=== PATIENT | female | born 1965 | race Caucasian/White ===

== ENCOUNTER 2017-04-14 09:16 | Inpatient (IN) ==
[2017-04-14] MEDS ORDERED: Naloxone 0.4 MG/ML INJ IVP PRN (11:55)
[2017-04-14] MEDS ORDERED: Ondansetron 4 MG/2 ML VIAL IVP PRN (11:55)
[2017-04-14] MEDS ORDERED: Acetaminophen 325 MG TABLET PO PRN (11:55)
[2017-04-14] MEDS ORDERED: 0.9 % Sodium Chloride 1,000 ML IVC SCH (12:00)
[2017-04-14] MEDS ORDERED: *HR* Dextrose 50 % in Water (Syg) 50 ML SYRINGE IVP PRN (12:00)
[2017-04-14] MEDS ORDERED: Dextrose Gel 15 GM PO PRN (12:00)
[2017-04-14] MEDS ORDERED: D5% in Water 1,000 ML IVC PRN (12:00)
[2017-04-14] MEDS ORDERED: Albuterol 2.5 MG/3 ML NEBULIZER IH PRN (12:01)
[2017-04-14] MEDS ORDERED: Dextrose Gel 15 GM PO ONE (12:09)
--- NOTE | 2017-04-14 12:10 | Internal Med History&Physical ---
Date of Encounter: 04/14/17 Time of Encounter: 11:30 Assessment and Plan (1) Acute renal failure Current visit: No Status: Acute Multifactorial Related to acute gastrointestinal illness (likely acute gastroenteritis, viral ) as well as dehydration and concom use of NSAIDs, JULIETA. Check CK as well as she is on statin Neohrology c/s Renal US if not improving Qualifiers: Qualified Code(s): N17.9 - Acute kidney failure, unspecified (2) Hyperkalemia Current visit: Yes Status: Acute No EKG changes. Has recieved IVF. Repeat BMP ordered. JULIETA held. Cotninue IVF , monitor (3) Schizophrenia Current visit: Yes Status: Acute continue home meds Qualifiers: Schizophrenia type: paranoid schizophrenia Qualified Code(s): F20.0 - Paranoid schizophrenia (4) COPD (chronic obstructive pulmonary disease) Current visit: Yes Status: Acute Stabe, continue bronchodilators Qualifiers: COPD type: emphysema Emphysema type: unspecified Qualified Code(s): J43.9 - Emphysema, unspecified (5) Hyperlipidemia Current visit: Yes Status: Acute check CK, hold statin for now Qualifiers: Hyperlipidemia type: pure hypercholesterolemia Qualified Code(s): E78.00 - Pure hypercholesterolemia, unspecified; E78.0 - Pure hypercholesterolemia (6) HTN (hypertension) Current visit: Yes Status: Acute Qualifiers: Hypertension type: essential hypertension Qualified Code(s): I10 - Essential (primary) hypertension (7) Tobacco abuse Current visit: Yes Status: Acute counselling Internal Medicine - H&P: HPI Admitted From: Direct Admit Plans for Post Hospital Care: Home History of present illness: 51 yo female with PMH schizophrenia living in Foster care, NIDDM on oral meds, HTN, Hyperlipidemia, COPD with ongoing tobacco abuse. Presents as a direct admit from [place] for STEPHEN with a Cr of 5.8, K of 7.5. No EKG chages. She was given kayexalate and 2 L IVF and referred here. PT reports 3-4 days hx N/V, no diarrhea. No abd pain. No fevers or chills. No cough or SOB. No revent travel. No new meds. No ill contacts or recent travel. States very poor po's. She is on Metformin, JULIETA I and also Naprosyn at home, as well as a statin. Pt now states she feels much better, and per her caregiver is more back to herself. By report at the [facility] this am she was agitated with clenched hands. Pt has no hx kidney disease. Pt is a a fair historian. Past Med Surg Social Fam HX - Past Medical History Medical history: COPD, diabetes, hypertension Psychiatric history: schizophrenia - Past Surgical History Surgical History: no surgical history - Social History Smoking Status: Current every day smoker Packs per day: 1 Smokeless Tobacco Status: No Alcohol use: none Drug use: none Recent Out of Country Travel Within the Last 8 Weeks: No Exposure or Possible Exposure to Illness During Travel: No - Family History Mother History Unknown: Yes Father History Unknown: Yes - Additional Family History Additional family history: Fam hx reviewed and noncontributory Internal Medicine - H&P: Meds Benztropine [Cogentin] 0.5 mg PO BID 08/27/15 [History] DiphenhydraMINE [Benadryl] 50 mg PO HS 08/27/15 [History] Haloperidol [Haldol] 5 mg PO QAM 08/27/15 [History] Lisinopril [Zestril] 10 mg PO DAILY 08/27/15 [History] Metformin HCl [Fortamet] 1,000 mg PO BID 08/27/15 [History] Naproxen [Naprosyn] 500 mg PO BID 08/27/15 [History] Pravastatin Sodium [Pravachol] 20 mg PO HS 08/27/15 [History] Venlafaxine HCl [Venlafaxine HCl ER] 150 mg PO DAILY 08/27/15 [History] glipiZIDE [Glipizide] 10 mg PO BID 08/27/15 [History] risperiDONE [Risperdal] 4 mg PO BID 08/27/15 [History] Albuterol Neb [Proventil Neb] 2.5 mg IH Q4HR PRN 04/14/17 [History] RisperiDONE MICROSPHERES [Risperdal Consta] 50 mg IM Q2W 04/14/17 [History] 3 Allergy/AdvReac Type Severity Reaction Status Date / Time No Known Allergies Allergy Verified 08/27/15 16:11 All Systems PM: A 10-system review of systems was performed and is negative for pertinent findings except as documented above in the HPI. Review of systems: Other than HPI a 10 pt ROS is negative - Constitutional Vitals: Temp Pulse Resp BP Pulse Ox 97.2 F L 117 16 137/84 97 04/14/17 11:52 04/14/17 11:52 04/14/17 11:52 04/14/17 11:52 04/14/17 11:52 General appearance: Present: A&O X 3, no acute distress, answers questions appropriately - Expanded ENT Exam Mouth exam: Present: dry mucosa - Respiratory Respiratory exam: Present: rhonchi (diffuse coarse bs bilat, scant exp wheeze) - Skin Skin exam: Present: dry (dimin turgor) Internal Med - H&P Results - EKG Data EKG shows normal: sinus rhythm Rate: normal, tachycardia - EKG Data Prior EKG available for review: no When compared to previous EKG: there is no significant change Interpretation IM: normal EKG - VTE Reasons for not Prescribing Prophylaxis: Treatment not Indicated - Low risk for VTE
[2017-04-14] MEDS: Dextrose Gel 15 GM PO PRN ×2 (12:16→21:25)
[2017-04-14] MEDS: Insulin LISPRO 300 UNITS/3 ML VIAL SQ SCH ×2 (12:18→17:32)
[2017-04-14 12:44] LABS: Basophils % 0.2 %; Eosinophils % 0.2 %; Hematocrit 41.2 % (35.3-44.9); Hemoglobin 13.4 g/dL (11.5-15.4); Immature Granulocytes % 0.7 % (0-4); Lymphocytes # 1.6 K/mcL (0.6-4.6); Lymphocytes % 15.6 %; Mean Corpuscular HGB Conc 32.5 g/dL (31.6-35.5); Mean Corpuscular Hemoglobin 29.6 pg (28.0-33.3); Mean Corpuscular Volume 90.9 fL (83.0-100.0); Mean Platelet Volume 10.3 fL (9.4-12.4); Monocytes # 0.7 K/mcL (0.0-1.3); Monocytes % 6.9 %; Platelet Count 301 K/mcL (140-400); Red Blood Count 4.53 M/mcL (3.82-4.97); Red Cell Distribution Width 13.8 % (11.5-14.5); Segmented Neutrophils % 76.4 %
[2017-04-14 12:54] LABS: Magnesium 1.7 mg/dL (1.6-2.6); Phosphorous 4.8 mg/dL (2.3-4.7)
[2017-04-14 12:55] LABS: Calcium 9.5 mg/dL (8.6-10.8); Potassium 5.8 mEq/L (3.5-4.5)
[2017-04-14 13:16] LABS: Thyroid Stimulating Hormone 0.924 mcIU/mL (0.350-4.840)
[2017-04-14 13:27] LABS: Hemoglobin A1C 5.5 %
--- NOTE | 2017-04-14 13:39 | Nephrology Consult Note ---
Date of Encounter: 04/14/17 Time of Encounter: 13:35 Assessment and Plan (1) Acute kidney injury Current Visit: Yes Status: Acute Review of past labs show a GFR of 45 on 07/11/16 and 59 on 06/11/16. Unknown at this time if any underlying CKD Will proceed with both the STEPHEN and CKD workup to include: UA, urine culture, urine sodium, urine creatinine, urine eosinophils, CPK, renal ultrasound, uric acid, protein/creatinine ratio, PTH, C3 C4 compliment, Vit D25-OH, MESERET, kappa lambda. Agree with holding JULIETA Agree with aggressive IV fluids Strict I/Os Avoid nephrotoxins if possible (2) Hyperkalemia Current Visit: Yes Status: Acute K+ now down to 5.8 after Kayexulate Monitor closely (3) Schizophrenia Current Visit: Yes Status: Acute per primary team Qualifiers: Schizophrenia type: paranoid schizophrenia Qualified Code(s): F20.0 - Paranoid schizophrenia History of Present Illness - Reason for Consult Consult date: 04/14/17 - Chief Complaint STEPHEN, hyperkalemia - History of Present Illness Ms Mann is a 51 year old female with PMH of schizophrenia living in Foster care , NIDDM on oral meds, HTN, Hyperlipidemia, COPD with ongoing tobacco abuse. Presents as a direct admit from [place] for STEPHEN with a Scr of 5.8 and a K+ of 7.5. She was given kayexalate and 2 L IVF and referred here. PT reports 3-4 days hx N/V, no diarrhea. States very poor intake. She is on Metformin, JULIETA and also Naprosyn at home although she says she only uses NSAIDs occasionally. Pt now states she feels much better; states she has has no hx of kidney disease nor any kidney disease in her family. Past Med Surg Social Fam HX - Past Medical History Medical history: COPD, diabetes, hypertension Psychiatric history: schizophrenia - Past Surgical History Surgical History: no surgical history - Social History Smoking Status: Current every day smoker Packs per day: 1 Smokeless Tobacco Status: No Alcohol use: none Drug use: none - Family History Mother History Unknown: Yes Father History Unknown: Yes Medications and Allergies Benztropine [Cogentin] 0.5 mg PO BID 08/27/15 [History] DiphenhydraMINE [Benadryl] 50 mg PO HS 08/27/15 [History] Haloperidol [Haldol] 5 mg PO QAM 08/27/15 [History] Lisinopril [Zestril] 10 mg PO DAILY 08/27/15 [History] Metformin HCl [Fortamet] 1,000 mg PO BID 08/27/15 [History] Naproxen [Naprosyn] 500 mg PO BID 08/27/15 [History] Pravastatin Sodium [Pravachol] 20 mg PO HS 08/27/15 [History] Venlafaxine HCl [Venlafaxine HCl ER] 150 mg PO DAILY 08/27/15 [History] glipiZIDE [Glipizide] 10 mg PO BID 08/27/15 [History] risperiDONE [Risperdal] 4 mg PO BID 08/27/15 [History] Albuterol Neb [Proventil Neb] 2.5 mg IH Q4HR PRN 04/14/17 [History] RisperiDONE MICROSPHERES [Risperdal Consta] 50 mg IM Q2W 04/14/17 [History] 3 Allergy/AdvReac Type Severity Reaction Status Date / Time No Known Allergies Allergy Verified 08/27/15 16:11 Review of Systems All Systems: reviewed and no additional remarkable complaints except as stated Constitutional: malaise, no chills, no fever(s) Cardiovascular: no chest pain, no edema Respiratory: no cough, no dyspnea Gastrointestinal: nausea, vomiting, no diarrhea Psychiatric: behavioral changes Exam - Vital Signs Vital signs: Initial Vital Signs Temp Pulse Resp BP Pulse Ox 97.2 F L 117 16 137/84 97 04/14/17 11:52 04/14/17 11:52 04/14/17 11:52 04/14/17 11:52 04/14/17 11:52 Vital Signs - Last 8 Hours Temp Pulse Resp BP Pulse Ox 04/14/17 13:16 98.2 F 115 16 118/79 96 04/14/17 11:52 97.2 F L 117 16 137/84 97 Intake and Output 04/13/17 04/14/17 04/14/17 23:59 07:59 15:59 Intake Total 480 / 480 Balance 480 / 480 Intake: Oral 480 / 480 Other: Meal Lunch Percent of Meal Consumed 5% Blood Glucose* 73 - General Appearance General appearance: well-developed, well-nourished, obese EENT: ATNC, mucous membranes moist, hearing intact, vision intact Neck: supple Respiratory: clear Cardiology: no edema, normal S1, normal S2 Gastrointestinal: no tenderness, no guarding Integumentary: warm and dry Neurologic: alert and oriented x3 Psychiatric: mood/affect appropriate, cooperative Results - Lab Results 04/14/17 12:31 04/14/17 12:31 Most recent lab results Calcium 9.5 mg/dL (8.6-10.8) 04/14/17 12:31 Phosphorus 4.8 mg/dL (2.3-4.7) H 04/14/17 12:31 Magnesium 1.7 mg/dL (1.6-2.6) 04/14/17 12:31 Consult Discharge Plan - Plan Referrals: Marla Miramontes DO [Primary Care Provider] -
[2017-04-14] MEDS: D5% in 0.9% NACL 1,000 ML IVC SCH ×2 (15:53→23:29)
[2017-04-14] MEDS: Ipratropium/Albuterol Neb 3 ML IH SCH ×2 (20:05→22:29)
[2017-04-14] MEDS: risperiDONE 1 MG TABLET PO SCH (20:43)
[2017-04-14 22:35] LABS: Bilirubin,Urine Negative (Negative); Blood,Urine Trace (Negative); Clarity,Urine Clear (Clear); Color,Urine Yellow (Yellow); Glucose,Urine (UA) Normal (Normal); Ketones,Urine Negative (Negative); Leukocyte Esterase,Urine Negative (Negative); Nitrite,Urine Negative (Negative); Protein,Urine 30 mg/dL (Neg-Trace); Specific Gravity,Urine 1.011 (1.010-1.025); Urobilinogen,Urine Normal (Normal)
[2017-04-14 22:37] LABS: Bacteria,Urine None Seen per hpf (None-Few); Hyaline Casts,Urine None Seen per lpf (None-Few); Squamous Epithelial Cell,Urine Many per lpf (None-Few)
[2017-04-14 22:40] LABS: Protein/Creatinine Ratio,Urine 0.52 mg/mg (0-0.20)
[2017-04-15] MEDS: Insulin LISPRO 300 UNITS/3 ML VIAL SQ SCH ×4 (01:39→17:01)
[2017-04-15] MEDS: Ipratropium/Albuterol Neb 3 ML IH SCH ×4 (04:08→22:50)
[2017-04-15 05:13] LABS: Basophils # 0.1 K/mcL (0.0-0.2); Basophils % 0.5 %; Eosinophils # 0.1 K/mcL (0.0-0.6); Eosinophils % 1.1 %; Hematocrit 36.5 % (35.3-44.9); Immature Granulocytes % 0.6 % (0-4); Lymphocytes # 2.4 K/mcL (0.6-4.6); Lymphocytes % 25.5 %; Mean Corpuscular HGB Conc 32.1 g/dL (31.6-35.5); Mean Corpuscular Hemoglobin 29.4 pg (28.0-33.3); Mean Corpuscular Volume 91.7 fL (83.0-100.0); Mean Platelet Volume 10.6 fL (9.4-12.4); Monocytes # 0.9 K/mcL (0.0-1.3); Monocytes % 9.9 %; Neutrophils # 5.9 K/mcL (1.6-8.9); Platelet Count 245 K/mcL (140-400); Red Blood Count 3.98 M/mcL (3.82-4.97); Segmented Neutrophils % 62.4 %
[2017-04-15 05:17] LABS: Hemoglobin 11.7 g/dL (11.5-15.4)
[2017-04-15 05:18] LABS: Potassium 5.1 mEq/L (3.5-4.5); Uric Acid 7.5 mg/dL (2.6-6.0)
[2017-04-15 05:20] LABS: Calcium 7.9 mg/dL (8.6-10.8)
[2017-04-15] MEDS: D5% in 0.9% NACL 1,000 ML IVC SCH ×4 (05:56→23:06)
[2017-04-15] MEDS: Venlafaxine XR (24 HR) 150 MG CAP.ER.24H PO SCH (08:08)
[2017-04-15] MEDS: risperiDONE 1 MG TABLET PO SCH ×2 (08:09→21:01)
--- NOTE | 2017-04-15 10:59 | Nephrology Progress Note ---
Date of Encounter: 04/15/17 Time of Encounter: 09:35 - Assessment and Plan (1) Acute kidney injury Current Visit: Yes Status: Acute Mildly improved and nonoliguric. Though I do not rec HD today, she still may need initiation of HD if she does not improve more fully in the next 24-48hr Wheezing on exam, without finger, hand or LE pitting edema: cont IVF. Hyperkalemia is slowly improve to just 5.1 today. (2) HTN (hypertension) Current Visit: Yes Status: Acute Stable Qualifiers: Hypertension type: essential hypertension Qualified Code(s): I10 - Essential (primary) hypertension (3) Hyperkalemia Current Visit: Yes Status: Acute slowly improving Subjective Principal diagnosis: STEPHEN, Hyperkalemia Interval history: Pt was s/e. She denied feeling a diminished appetite, or N/V or other uremic symptoms. Objective - Vital Signs Vital signs: Vital Signs Temp Pulse Resp BP Pulse Ox 04/15/17 10:47 98.0 F 99 17 143/87 96 04/15/17 07:38 98.2 F 97 17 138/82 98 04/15/17 04:09 98.3 F 102 16 146/84 96 04/15/17 00:06 97 04/14/17 23:22 98.1 F 103 16 133/90 96 04/14/17 22:30 99 04/14/17 18:55 98.1 F 93 17 146/85 90 04/14/17 15:20 98.7 F 115 16 131/74 93 04/14/17 13:16 98.2 F 115 16 118/79 96 04/14/17 11:52 97.2 F L 117 16 137/84 97 Intake and Output 04/14/17 04/15/17 04/15/17 23:59 07:59 15:59 Intake Total 1150 / 1150 1000 / 1000 360 / 360 Output Total 650 / 650 1999 0 / 0 Balance 500 / 500 -1000 / -1000 360 / 360 Intake: IV Fluids 1000 / 1000 1000 / 1000 D5% And 0.9% Nacl 1000 Ml 1000 / 1000 1000 / 1000 1,000 ML @ 150 mls/hr IVC .Q6H40M [facility] Rx#: [id number] Oral 150 / 150 360 / 360 Output: Urine 650 / 650 1999 0 / 0 Other: Meal Dinner Breakfast Percent of Meal Consumed 100% 45% Stool Size Moderate Stool Consistency loose liquid Stool Color Brown # Voids 1 # Bowel Movements 1 Weight 68.9 kg 68.8 kg Blood Glucose* 109 105 202 Patient Weight 04/15/17 23:59 Weight 68.8 kg - General Appearance General appearance: Present: well-developed, well-nourished, appears started age EENT: Present: ATNC, PERRL, mucous membranes moist Neck: Present: supple Respiratory: Present: wheezing Cardiology: Present: no edema, regular rate, normal S1, normal S2 Gastrointestinal: Present: normoactive bowel sounds, no tenderness, no guarding Integumentary: Present: warm and dry Neurologic: Present: no focal deficit, no asterixis, alert and oriented x3 Musculoskeletal: Present: no deformities, no erythema Psychiatric: Present: mood/affect appropriate, cooperative - Lab 04/15/17 04:39 04/15/17 04:39 Most recent lab results Calcium 7.9 mg/dL (8.6-10.8) L D 04/15/17 04:39 Phosphorus 4.8 mg/dL (2.3-4.7) H 04/14/17 12:31 Magnesium 1.7 mg/dL (1.6-2.6) 04/14/17 12:31 Urine Creatinine 29 mg/dL 04/14/17 22:20 Urine Sodium 73.0 mEq/L 04/14/17 22:20 Urine Total Protein 15 mg/dL (1-14) H 04/14/17 22:20 - VTE Reasons for not Prescribing Prophylaxis: Treatment not Indicated - Low risk for VTE Documentation of Mechanical Device: Graduated compression elastic hosiery Consult Discharge Plan - Plan Referrals: Marla Miramontes DO [Primary Care Provider] -
--- NOTE | 2017-04-15 17:39 | Internal Med Progress Note ---
Date of Encounter: 04/15/17 Time of Encounter: 17:37 - Assessment and plan (1) Acute renal failure Current Visit: No Status: Acute Assessment and plan: IV fluids. Appreciate nephrology recommendations. Monitor kidney function daily. Avoid nephrotoxins. May need hemodialysis if creatinine does not significantly improve. Her medical record review baseline in June 2016 was 0.99. Qualifiers: Qualified Code(s): N17.9 - Acute kidney failure, unspecified (2) Hyperkalemia Current Visit: Yes Status: Acute Assessment and plan: Potassium remains elevated at 5.1 today. I will give 1 dose of Kayexalate and start renal diet. (3) Schizophrenia Current Visit: Yes Status: Acute Assessment and plan: I will continue her psych meds. Qualifiers: Schizophrenia type: paranoid schizophrenia Qualified Code(s): F20.0 - Paranoid schizophrenia (4) COPD (chronic obstructive pulmonary disease) Current Visit: Yes Status: Acute Assessment and plan: No evidence of exacerbation. We will use bronchodilators as needed. Qualifiers: COPD type: emphysema Emphysema type: unspecified Qualified Code(s): J43.9 - Emphysema, unspecified (5) Tobacco abuse Current Visit: Yes Status: Acute Assessment and plan: I have discussed smoking cessation with her. I offered nicotine replacement therapy. - Subjective Interval history: History is limited by schizophrenia. Patient appears quite withdrawn and does not volunteer any information. She says she does not know why she is in the hospital. She denies changes in urination denies abdominal pain, fevers and chills - Constitutional Vitals: Temp Pulse Resp BP Pulse Ox 98.2 F 98 17 131/85 95 04/15/17 16:45 04/15/17 16:45 04/15/17 16:45 04/15/17 16:45 04/15/17 16:45 General appearance: Present: A&O X 3, no acute distress, answers questions appropriately - Respiratory Respiratory exam: Present: CTAB. Absent: accessory muscle use, rales, rhonchi, wheezes - Cardiovascular Cardiovascular exam: Present: RRR, +S1, +S2. Absent: diastolic murmur, gallop, rubs, systolic murmur - GI/Abdominal GI/Abdominal exam: Present: normal bowel sounds, soft, no peritoneal signs. Absent: distended, tenderness - Extremities Exam Extremities exam: Present: warm, radial pulses palpable and symmetrical. Absent : calf tenderness, cyanotic, pedal edema - Skin Skin exam: Present: dry, intact Internal Medicine: Result - Labs CBC & Chem 7: 04/15/17 04:39 04/15/17 04:39 Labs: Short CBC 04/15/17 Range/Units 04:39 WBC 9.4 (4.3-11.1) K/mcL Hgb 11.7 D (11.5-15.4) g/dL Hct 36.5 (35.3-44.9) % Plt Count 245 (140-400) K/mcL Neutrophils # 5.9 (1.6-8.9) K/mcL BMP 04/15/17 04:39 Sodium 138 Potassium 5.1 H Chloride 106 Carbon Dioxide 21 BUN 28 H Creatinine 4.93 H Glucose 83 Calcium 7.9 L D Urine 04/14/17 Range/Units 22:20 Urine Color Yellow (Yellow) Urine Clarity Clear (Clear) Urine pH 7.0 (5.0-8.0) pH Units Ur Specific [place] 1.011 (1.010-1.025) Urine Protein 30 H (Neg-Trace) mg/dL Urine Glucose (UA) Normal (Normal) mg/dL - Impressions Impressions Chest X-Ray 04/14/17 12:03 IMPRESSION: No acute disease. D/ / Olive Antonio Cha, MD / Olive Antonio Cha, MD Interpreting Provider: Olive Antonio Cha, MD Retroperitoneum Ultrasound 04/14/17 18:00 IMPRESSION: Mild right pelviectasis. Correlation for obstructive uropathy is recommended. Suspected fatty infiltration of the liver D/ / Olive Antonio Cha, MD / Olive Antonio Cha, MD Interpreting Provider: Olive Antonio Cha, MD - VTE Reasons for not Prescribing Prophylaxis: Treatment not Indicated - Low risk for VTE Documentation of Mechanical Device: Graduated compression elastic hosiery Consult Discharge Plan - Plan Referrals: Marla Miramontes DO [Primary Care Provider] -
[2017-04-15] MEDS ORDERED: Insulin LISPRO 300 UNITS/3 ML VIAL SQ SCH (21:00)
[2017-04-16] MEDS: Ipratropium/Albuterol Neb 3 ML IH SCH ×4 (04:39→22:54)
[2017-04-16 04:52] LABS: Basophils # 0.1 K/mcL (0.0-0.2); Basophils % 0.9 %; Eosinophils # 0.2 K/mcL (0.0-0.6); Eosinophils % 3.3 %; Hematocrit 33.7 % (35.3-44.9); Hemoglobin 10.8 g/dL (11.5-15.4); Immature Granulocytes % 0.4 % (0-4); Immature Platelets 3.3 % (1.1-6.1); Lymphocytes # 2.2 K/mcL (0.6-4.6); Lymphocytes % 30.9 %; Mean Corpuscular Hemoglobin 29.8 pg (28.0-33.3); Mean Corpuscular Volume 92.8 fL (83.0-100.0); Mean Platelet Volume 10.4 fL (9.4-12.4); Monocytes # 0.8 K/mcL (0.0-1.3); Monocytes % 11.3 %; Neutrophils # 3.7 K/mcL (1.6-8.9); Platelet Count 226 K/mcL (140-400); Red Blood Count 3.63 M/mcL (3.82-4.97); Red Cell Distribution Width 13.8 % (11.5-14.5); Segmented Neutrophils % 53.2 %
[2017-04-16] MEDS: D5% in 0.9% NACL 1,000 ML IVC SCH (05:51)
[2017-04-16 06:16] LABS: Calcium 7.4 mg/dL (8.6-10.8); Potassium 4.9 mEq/L (3.5-4.5)
[2017-04-16 07:47] LABS: Complement Component 3 133 mg/dL (88-201)
[2017-04-16 07:48] LABS: Complement Component 4 24 mg/dL (10-40)
[2017-04-16 07:52] LABS: ANA IgG by ELISA NONE DETECTED (None Detected)
--- NOTE | 2017-04-16 08:28 | Nephrology Progress Note ---
Date of Encounter: 04/16/17 Time of Encounter: 08:18 - Assessment and Plan (1) Acute kidney injury Current Visit: Yes Status: Acute Kidney function continues to improve Scr 3.24 and GFR 15 Chloride up to 112-will change IV fluids to .45 at 100ml/hour Robust UOP-3750 ml yesterday Continue strict I/Os Avoid nephrotoxins if possible (2) Hyperkalemia Current Visit: Yes Status: Acute Improving-now at 4.9 (3) Schizophrenia Current Visit: Yes Status: Acute per primary team Qualifiers: Schizophrenia type: paranoid schizophrenia Qualified Code(s): F20.0 - Paranoid schizophrenia Subjective Principal diagnosis: STEPHEN, Hyperkalemia Interval history: Patient seen and examined. Siting on side of bed, voices no complaints. Objective - Vital Signs Vital signs: Vital Signs Temp Pulse Resp BP Pulse Ox 04/16/17 07:21 97.9 F 96 16 151/93 97 04/16/17 04:18 98.3 F 98 16 136/82 94 04/15/17 23:43 98.2 F 98 16 117/75 96 04/15/17 22:50 16 96 04/15/17 19:17 98.4 F 95 16 146/82 96 04/15/17 16:45 98.2 F 98 17 131/85 95 04/15/17 15:49 17 96 04/15/17 11:00 17 96 04/15/17 10:47 98.0 F 99 17 143/87 96 Intake and Output 04/15/17 04/16/17 04/16/17 23:59 07:59 15:59 Intake Total 2510 / 2510 1000 / 1000 Output Total 850 / 850 1000 / 1000 Balance 1660 / 1660 0 / 0 Intake: IV Fluids 1999 1000 / 1000 D5% And 0.9% Nacl 1000 Ml 1999 / 1999 1000 / 1000 1,000 ML @ 150 mls/hr IVC .Q6H40M [facility] Rx#: [id number] Oral 510 / 510 Output: Urine 850 / 850 1000 / 1000 Other: Meal Dinner Percent of Meal Consumed 50% Weight 68.1 kg Blood Glucose* 248 150 Patient Weight 04/16/17 23:59 Weight 68.1 kg - General Appearance General appearance: Present: well-developed, well-nourished EENT: Present: ATNC, mucous membranes moist, hearing intact, vision intact Neck: Present: supple Respiratory: Present: clear Cardiology: Present: no edema, normal S1, normal S2 Gastrointestinal: Present: no tenderness, no guarding Integumentary: Present: warm and dry Neurologic: Present: alert and oriented x3 Psychiatric: Present: mood/affect appropriate, cooperative - Lab 04/16/17 03:54 04/16/17 03:54 Most recent lab results Calcium 7.4 mg/dL (8.6-10.8) L 04/16/17 03:54 Phosphorus 4.8 mg/dL (2.3-4.7) H 04/14/17 12:31 Magnesium 1.7 mg/dL (1.6-2.6) 04/14/17 12:31 Urine Creatinine 29 mg/dL 04/14/17 22:20 Urine Sodium 73.0 mEq/L 04/14/17 22:20 Urine Total Protein 15 mg/dL (1-14) H 04/14/17 22:20 - VTE Reasons for not Prescribing Prophylaxis: Treatment not Indicated - Low risk for VTE Documentation of Mechanical Device: Graduated compression elastic hosiery Consult Discharge Plan - Plan Referrals: Marla Miramontes DO [Primary Care Provider] -
--- NOTE | 2017-04-16 08:32 | Internal Med Progress Note ---
Date of Encounter: 04/16/17 Time of Encounter: 08:30 - Assessment and plan (1) Acute renal failure Current Visit: No Status: Acute Assessment and plan: Non oliguria So far very good urine out put Cr started trending down slowly Cont IV hydration Changed IVF to 1/2 NS .. due to Na @ 140 strict I & O Nephro on board may not need HD Her medical record review baseline in June 2016 was 0.99. Qualifiers: Qualified Code(s): N17.9 - Acute kidney failure, unspecified (2) Hypoglycemia Current Visit: No Status: Acute Assessment and plan: resolved d/c D5 IVF tolerating PO intake well (3) Hyperkalemia Current Visit: Yes Status: Acute Assessment and plan: Improving slowly..down to 4.9 cont close monitoring cont albuterol Neb (4) Schizophrenia Current Visit: Yes Status: Acute Assessment and plan: resumed home med Haldol and Cogentin Qualifiers: Schizophrenia type: paranoid schizophrenia Qualified Code(s): F20.0 - Paranoid schizophrenia (5) COPD (chronic obstructive pulmonary disease) Current Visit: Yes Status: Acute Assessment and plan: No evidence of exacerbation. Cont bronchodilators as needed. Qualifiers: COPD type: emphysema Emphysema type: unspecified Qualified Code(s): J43.9 - Emphysema, unspecified (6) HTN (hypertension) Current Visit: Yes Status: Acute Qualifiers: Hypertension type: essential hypertension Qualified Code(s): I10 - Essential (primary) hypertension (7) Tobacco abuse Current Visit: Yes Status: Acute Assessment and plan: Counseled to quit smoking. on Nicotine patch (8) Diabetes mellitus Current Visit: Yes Status: Chronic Assessment and plan: Her HbA1C 5.5 with Metformin on at home Hold Metformin for now cont low grade ISS for now Qualifiers: Diabetes mellitus type: type 2 Diabetes mellitus complication status: without complication Qualified Code(s): E11.9 - Type 2 diabetes mellitus without complications - Subjective Interval history: 51 yo female with PMH schizophrenia living in Foster care, NIDDM on oral meds, HTN, Hyperlipidemia, COPD with ongoing tobacco abuse. Presents as a direct admit from [place] for STEPHEN with a Cr of 5.8, K of 7.5. No EKG chages. She was given kayexalate and 2 L IVF and referred here. PT reports 3-4 days hx N/V, no diarrhea. No abd pain. No fevers or chills. No cough or SOB. No recent travel. No new meds. No ill contacts or recent travel. States very poor po's. She is on Metformin, JULIETA I and also Naprosyn at home, as well as a statin. Pt is alert, awake and O x3.. Tolerating pO intake well. Denied any CP / SOB / Abd pain .. No diarrhea. No urinary complaints / symptoms - Constitutional Vitals: Temp Pulse Resp BP Pulse Ox 97.9 F 96 16 151/93 97 04/16/17 07:21 04/16/17 07:21 04/16/17 07:21 04/16/17 07:21 04/16/17 07:21 General appearance: Present: A&O X 3, no acute distress, answers questions appropriately - Head Head exam: Present: atraumatic, normal inspection - Respiratory Respiratory exam: Present: decreased breath sounds. Absent: rales, rhonchi, wheezes - Cardiovascular Cardiovascular exam: Present: RRR, +S1, +S2. Absent: diastolic murmur, gallop, rubs, systolic murmur - GI/Abdominal GI/Abdominal exam: Present: normal bowel sounds, soft, no peritoneal signs. Absent: distended, tenderness - Extremities Exam Extremities exam: Absent: calf tenderness, pedal edema, tenderness - Back Exam Back exam: Absent: CVA tenderness (L), CVA tenderness (R) - Neurological Exam Neurological exam: Present: alert, oriented X3 - Psychiatric Psychiatric exam: Present: normal affect, normal mood Internal Medicine: Result - Labs CBC & Chem 7: 04/16/17 03:54 04/16/17 03:54 Labs: Short CBC 04/16/17 Range/Units 03:54 WBC 7.0 (4.3-11.1) K/mcL Hgb 10.8 L (11.5-15.4) g/dL Hct 33.7 L (35.3-44.9) % Plt Count 226 (140-400) K/mcL Neutrophils # 3.7 (1.6-8.9) K/mcL BMP 04/16/17 03:54 Sodium 140 Potassium 4.9 H Chloride 112 H Carbon Dioxide 20 BUN 22 H Creatinine 3.24 H Glucose 135 H Calcium 7.4 L - VTE Reasons for not Prescribing Prophylaxis: Treatment not Indicated - Low risk for VTE Documentation of Mechanical Device: Graduated compression elastic hosiery Consult Discharge Plan - Plan Referrals: Marla Miramontes DO [Primary Care Provider] -
[2017-04-16] MEDS: Venlafaxine XR (24 HR) 150 MG CAP.ER.24H PO SCH (08:36)
[2017-04-16] MEDS: risperiDONE 1 MG TABLET PO SCH ×2 (08:37→22:09)
[2017-04-16 09:38] LABS: Lambda Qnt Free Light Chains 2.86 mg/dL (0.57-2.63)
[2017-04-16] MEDS: Insulin LISPRO 300 UNITS/3 ML VIAL SQ SCH ×2 (11:58→16:10)
[2017-04-16 17:14] LABS: Calcium 8.3 mg/dL (8.6-10.8); Magnesium 1.3 mg/dL (1.6-2.6); Potassium 5.1 mEq/L (3.5-4.5)
[2017-04-17] MEDS: Ipratropium/Albuterol Neb 3 ML IH SCH ×4 (06:24→22:42)
[2017-04-17 06:31] LABS: Basophils # 0.1 K/mcL (0.0-0.2); Basophils % 0.7 %; Eosinophils # 0.3 K/mcL (0.0-0.6); Eosinophils % 3.5 %; Hemoglobin 11.5 g/dL (11.5-15.4); Immature Granulocytes % 0.4 % (0-4); Lymphocytes # 1.7 K/mcL (0.6-4.6); Mean Corpuscular HGB Conc 31.9 g/dL (31.6-35.5); Mean Corpuscular Hemoglobin 29.4 pg (28.0-33.3); Mean Corpuscular Volume 92.1 fL (83.0-100.0); Mean Platelet Volume 10.5 fL (9.4-12.4); Monocytes # 0.7 K/mcL (0.0-1.3); Monocytes % 10.5 %; Neutrophils # 4.3 K/mcL (1.6-8.9); Platelet Count 245 K/mcL (140-400); Red Blood Count 3.91 M/mcL (3.82-4.97); Red Cell Distribution Width 13.4 % (11.5-14.5); Segmented Neutrophils % 60.9 %
[2017-04-17 06:40] LABS: Calcium 8.6 mg/dL (8.6-10.8); Magnesium 1.1 mg/dL (1.6-2.6); Potassium 4.2 mEq/L (3.5-4.5)
[2017-04-17] MEDS: Insulin LISPRO 300 UNITS/3 ML VIAL SQ SCH ×4 (07:12→16:51)
--- NOTE | 2017-04-17 08:25 | Internal Med Progress Note ---
Date of Encounter: 04/17/17 Time of Encounter: 08:22 - Assessment and plan (1) Acute renal failure Current Visit: No Status: Acute Assessment and plan: Non oliguric Improving.. Cr came down to 2.54 So far very good urine out put..had -680 negative fluid balance y/d Cr started trending down slowly Held IV fluids due to her respiratory function / wet lungs strict I & O Nephro on board may not need HD Her medical record reviewed- baseline in June 2016 was 0.99. Qualifiers: Qualified Code(s): N17.9 - Acute kidney failure, unspecified (2) Hypoglycemia Current Visit: No Status: Acute Assessment and plan: resolved d/c D5 IVF tolerating PO intake well (3) Pneumonia Current Visit: Yes Status: Acute Assessment and plan: Reviewed CXR showing patchy infiltrate in RLL Mostly bacterial she might have this upon admission itself too since she had URI symptoms before she came to hospital, with Iv fluids it became more pronounced Started on empirical abx Rocephin cont Duoneb and O2 PRN Qualifiers: Laterality: right Lung location: lower lobe of lung Qualified Code(s): J18.1 - Lobar pneumonia, unspecified organism (4) Hyperkalemia Current Visit: Yes Status: Acute Assessment and plan: Improving slowly..down to 4.2 Had give one dose of Kayexalate last night cont close monitoring cont albuterol Neb (5) Schizophrenia Current Visit: Yes Status: Acute Assessment and plan: resumed home med Haldol and Cogentin Pt is due for her IM Risperdal inj by y/d..since she may need to stay in the hospital another day will ask pharmacy to check the dose with her psychiatrist and if it is available in our formulary , then we can administer the dose here today Qualifiers: Schizophrenia type: paranoid schizophrenia Qualified Code(s): F20.0 - Paranoid schizophrenia (6) COPD (chronic obstructive pulmonary disease) Current Visit: Yes Status: Chronic Assessment and plan: No evidence of exacerbation. Cont bronchodilators as needed. Qualifiers: COPD type: emphysema Emphysema type: unspecified Qualified Code(s): J43.9 - Emphysema, unspecified (7) HTN (hypertension) Current Visit: Yes Status: Acute Qualifiers: Hypertension type: essential hypertension Qualified Code(s): I10 - Essential (primary) hypertension (8) Tobacco abuse Current Visit: Yes Status: Acute Assessment and plan: Counseled to quit smoking. on Nicotine patch (9) Diabetes mellitus Current Visit: Yes Status: Chronic Assessment and plan: Her HbA1C 5.5 with Metformin on at home Hold Metformin for now due to STEPHEN cont low grade ISS for now Qualifiers: Diabetes mellitus type: type 2 Diabetes mellitus complication status: without complication Qualified Code(s): E11.9 - Type 2 diabetes mellitus without complications - Subjective Interval history: 51 yo female with PMH schizophrenia living in [facility], NIDDM on oral meds, HTN, Hyperlipidemia, COPD with ongoing tobacco abuse. Presents as a direct admit from [place] for STEPHEN with a Cr of 5.8, K of 7.5. No EKG chages. She was given kayexalate and 2 L IVF and referred here. PT reports 3-4 days hx N/V, no diarrhea. No abd pain. No fevers or chills. No cough or SOB. No recent travel. No new meds. No ill contacts or recent travel. States very poor po's. She is on Metformin, JULIETA I and also Naprosyn at home, as well as a statin. Pt is alert, awake and O x3.. Tolerating pO intake well. Denied any CP / SOB / Abd pain .. No diarrhea. No urinary complaints / symptoms..Cough + no expectoration - Constitutional Vitals: Temp Pulse Resp BP Pulse Ox 98.6 F 91 19 145/86 96 04/17/17 07:08 04/17/17 07:08 04/17/17 07:08 04/17/17 07:08 04/17/17 07:08 General appearance: Present: A&O X 3, no acute distress, answers questions appropriately - Head Head exam: Present: atraumatic, normal inspection - Respiratory Respiratory exam: Present: decreased breath sounds, rhonchi (mild). Absent: rales, respiratory distress, wheezes - Cardiovascular Cardiovascular exam: Present: RRR, +S1, +S2. Absent: systolic murmur - GI/Abdominal GI/Abdominal exam: Present: normal bowel sounds, soft, no peritoneal signs. Absent: distended, tenderness - Extremities Exam Extremities exam: Absent: calf tenderness, pedal edema, tenderness - Neurological Exam Neurological exam: Present: alert, oriented X3 - Psychiatric Psychiatric exam: Present: depressed Internal Medicine: Result - Labs CBC & Chem 7: 04/17/17 05:21 04/17/17 05:21 Labs: Short CBC 04/17/17 Range/Units 05:21 WBC 7.1 (4.3-11.1) K/mcL Hgb 11.5 (11.5-15.4) g/dL Hct 36.0 (35.3-44.9) % Plt Count 245 (140-400) K/mcL Neutrophils # 4.3 (1.6-8.9) K/mcL BMP 04/16/17 04/17/17 15:50 05:21 Sodium 139 140 Potassium 5.1 H 4.2 Chloride 109 110 H Carbon Dioxide 20 21 BUN 22 H 19 Creatinine 2.88 H 2.54 H Glucose 85 108 H Calcium 8.3 L 8.6 - Impressions Impressions Chest X-Ray 04/16/17 12:34 IMPRESSION: Interval worsening of a retrocardiac opacity which may represent infection or atelectasis. D/ / 04/16/2017 14:51:53 Madeleine Roberts MD / lisa Interpreting Provider: Madeleine Roberts MD - VTE Reasons for not Prescribing Prophylaxis: Treatment not Indicated - Low risk for VTE Documentation of Mechanical Device: Graduated compression elastic hosiery Consult Discharge Plan - Plan Referrals: Marla Miramontes DO [Primary Care Provider] -
[2017-04-17] MEDS: risperiDONE 1 MG TABLET PO SCH ×2 (09:21→20:05)
[2017-04-17] MEDS: Venlafaxine XR (24 HR) 150 MG CAP.ER.24H PO SCH (09:21)
[2017-04-17] MEDS: Magnesium Sulfate 2 GM in D5% in Water 100 ML IVPB SCH ×2 (09:21→14:00)
[2017-04-17] MEDS ORDERED: RisperiDONE MICROSPHERES 25 MG/2 ML SYRINGE IM SCH (10:00)
--- NOTE | 2017-04-17 22:13 | Nephrology Progress Note ---
Date of Encounter: 04/17/17 Time of Encounter: 22:11 - Assessment and Plan (1) Acute kidney injury Current Visit: Yes Status: Acute Renal function continues to slowly improve. Continue current management. Avoid nephrotoxins. Adjust medications for renal function. (2) HTN (hypertension) Current Visit: Yes Status: Acute Blood pressure is controlled. Qualifiers: Hypertension type: essential hypertension Qualified Code(s): I10 - Essential (primary) hypertension (3) Hyperkalemia Current Visit: Yes Status: Acute Resolved. (4) Schizophrenia Current Visit: Yes Status: Acute Per primary team. Qualifiers: Schizophrenia type: paranoid schizophrenia Qualified Code(s): F20.0 - Paranoid schizophrenia Subjective Principal diagnosis: STEPHEN, Hyperkalemia Interval history: Patient was seen and evaluated. No new complaint. Review of system overall stable. Objective - Vital Signs Vital signs: Vital Signs Temp Pulse Resp BP Pulse Ox 04/17/17 19:23 99.8 F H 104 18 127/83 98 04/17/17 16:33 99.4 F 98 18 95 04/17/17 16:11 16 94 04/17/17 10:49 98.6 F 102 18 140/93 95 04/17/17 10:21 16 99 04/17/17 07:08 98.6 F 91 19 145/86 96 04/17/17 04:10 98.1 F 91 18 135/65 95 04/17/17 00:21 98.4 F 91 18 145/89 96 04/16/17 22:54 17 95 Intake and Output 04/17/17 04/17/17 04/17/17 07:59 15:59 23:59 Intake Total 0 / 0 788 / 788 940 / 940 Output Total 0 / 0 800 / 800 Balance 0 / 0 788 / 788 140 / 140 Intake: IV Fluids 308 / 308 100 / 100 Magnesium Sulfate 2 GM In 208 / 208 Dextrose 5% 100 ML @ 100 mls/hr IVPB Q6H [facility] Rx#: [id number] Rocephin 1,000 MG In 100 / 100 100 / 100 Dextrose 5% (Minibag+) 100 ML 100 ML @ 200 mls/ hr IVPB Q24H [facility] Rx#: [id number] Oral 0 / 0 480 / 480 840 / 840 Output: Urine 0 / 0 800 / 800 Other: Meal Lunch Dinner Percent of Meal Consumed 100% 95% Weight 66.7 kg Blood Glucose* 120 154 132 Patient Weight 04/17/17 23:59 Weight 66.7 kg - General Appearance General appearance: Present: well-developed, well-nourished EENT: Present: ATNC Neck: Present: supple Respiratory: Present: course breath sounds Cardiology: Present: no edema Integumentary: Present: warm and dry Psychiatric: Present: mood/affect appropriate - Lab 04/17/17 05:21 04/17/17 05:21 Most recent lab results Calcium 8.6 mg/dL (8.6-10.8) 04/17/17 05:21 Phosphorus 4.8 mg/dL (2.3-4.7) H 04/14/17 12:31 Magnesium 1.1 mg/dL (1.6-2.6) L 04/17/17 05:21 Urine Creatinine 29 mg/dL 04/14/17 22:20 Urine Sodium 73.0 mEq/L 04/14/17 22:20 Urine Total Protein 15 mg/dL (1-14) H 04/14/17 22:20 - VTE Reasons for not Prescribing Prophylaxis: Treatment not Indicated - Low risk for VTE Documentation of Mechanical Device: Intermittent pneumatic compression device Consult Discharge Plan - Plan Referrals: Marla Miramontes DO [Primary Care Provider] -
[2017-04-18] MEDS: Ipratropium/Albuterol Neb 3 ML IH SCH ×4 (03:34→22:28)
[2017-04-18 06:35] LABS: Calcium 9.2 mg/dL (8.6-10.8); Magnesium 1.8 mg/dL (1.6-2.6); Potassium 4.1 mEq/L (3.5-4.5)
[2017-04-18] MEDS: Insulin LISPRO 300 UNITS/3 ML VIAL SQ SCH ×4 (07:14→16:36)
[2017-04-18] MEDS: risperiDONE 1 MG TABLET PO SCH ×2 (08:17→21:34)
[2017-04-18] MEDS: Venlafaxine XR (24 HR) 150 MG CAP.ER.24H PO SCH (08:17)
--- NOTE | 2017-04-18 09:34 | Internal Med Progress Note ---
<Kevin Colindres - Last Filed: 04/18/17 09:32> Date of Encounter: 04/18/17 Time of Encounter: 09:33 - Assessment and plan (1) Acute renal failure Current Visit: No Status: Acute Assessment and plan: Sherrell continues to improve. Down to 2.37 today. Patient has excellent urine output. No indication for further dialysis. Continue to monitor renal function and urine output. Qualifiers: Qualified Code(s): N17.9 - Acute kidney failure, unspecified (2) Hypoglycemia Current Visit: No Status: Acute Assessment and plan: Resolved. Blood sugars are under good control. Continue to monitor. (3) Hyperkalemia Current Visit: Yes Status: Acute Assessment and plan: Resolved. Potassium 4.1 today. Likely related to acute renal failure which is improving as discussed above. Continue to monitor. (4) Schizophrenia Current Visit: Yes Status: Acute Assessment and plan: Stable. Continue home medications. Qualifiers: Schizophrenia type: paranoid schizophrenia Qualified Code(s): F20.0 - Paranoid schizophrenia (5) COPD (chronic obstructive pulmonary disease) Current Visit: Yes Status: Chronic Assessment and plan: No evidence of exacerbation. Continue bronchodilators as needed. Qualifiers: COPD type: emphysema Emphysema type: unspecified Qualified Code(s): J43.9 - Emphysema, unspecified (6) Pneumonia Current Visit: Yes Status: Acute Assessment and plan: Reviewed CXR showing patchy infiltrate in RLL. Likely present on admission. Continue Rocephin for 7 days. Qualifiers: Laterality: right Lung location: lower lobe of lung Qualified Code(s): J18.1 - Lobar pneumonia, unspecified organism - Subjective Interval history: Patient seen and examined at bedside. Patient states that a few she feels okay today. She has no specific complaints. She denies fever, chills, cough or shortness of breath, chest pain. Is eating and drinking well without difficulty. - Constitutional Vitals: Temp Pulse Resp BP Pulse Ox 98.6 F 97 18 129/77 97 04/18/17 06:47 04/18/17 06:47 04/18/17 06:47 04/18/17 06:47 04/18/17 06:47 General appearance: Present: A&O X 3, no acute distress, answers questions appropriately - Respiratory Respiratory exam: Present: CTAB. Absent: rales, rhonchi, wheezes - Cardiovascular Cardiovascular exam: Present: RRR. Absent: gallop, rubs, systolic murmur - GI/Abdominal GI/Abdominal exam: Present: normal bowel sounds, soft. Absent: distended, tenderness - Extremities Exam Extremities exam: Present: warm. Absent: pedal edema, tenderness - Neurological Exam Neurological exam: Present: alert, CN II-XII intact, oriented X3. Absent: no focal deficits Internal Medicine: Result - Labs CBC & Chem 7: 04/17/17 05:21 04/18/17 05:55 Labs: BMP 04/18/17 05:55 Sodium 138 Potassium 4.1 Chloride 107 Carbon Dioxide 22 BUN 19 Creatinine 2.37 H Glucose 128 H Calcium 9.2 - VTE Reasons for not Prescribing Prophylaxis: Treatment not Indicated - Low risk for VTE Documentation of Mechanical Device: Graduated compression elastic hosiery Consult Discharge Plan - Plan Referrals: Marla Miramontes DO [Primary Care Provider] - <Miguelito Conroy - Last Filed: 04/18/17 18:41> Date of Encounter: 04/18/17 - Constitutional Vitals: Temp Pulse Resp BP Pulse Ox 99 F 96 16 113/69 97 04/18/17 15:38 04/18/17 15:38 04/18/17 16:25 04/18/17 15:38 04/18/17 16:25 Internal Medicine: Result - Labs CBC & Chem 7: 04/17/17 05:21 04/18/17 05:55 Labs: BMP 04/18/17 05:55 Sodium 138 Potassium 4.1 Chloride 107 Carbon Dioxide 22 BUN 19 Creatinine 2.37 H Glucose 128 H Calcium 9.2 - Attending Attestation I examined this patient and my medical decision-making was reviewed with the Resident Physician. I agree with the documented findings, disposition and treatment plan as described except to the extent set forth below.
--- NOTE | 2017-04-18 13:01 | Nephrology Progress Note ---
Date of Encounter: 04/18/17 Time of Encounter: 12:59 - Assessment and Plan (1) Acute kidney injury Current Visit: Yes Status: Acute Renal function continues to slowly improve. Continue current management. Avoid nephrotoxins. Adjust medications for renal function. We will give 1 L of saline to assist in renal recovery. (2) HTN (hypertension) Current Visit: Yes Status: Acute Blood pressure is controlled. Qualifiers: Hypertension type: essential hypertension Qualified Code(s): I10 - Essential (primary) hypertension (3) Hyperkalemia Current Visit: Yes Status: Acute Resolved. (4) Schizophrenia Current Visit: Yes Status: Acute Per primary team. Qualifiers: Schizophrenia type: paranoid schizophrenia Qualified Code(s): F20.0 - Paranoid schizophrenia Subjective Principal diagnosis: STEPHEN, Hyperkalemia Interval history: Patient was seen and evaluated. No new complaint. Review of system overall stable. Objective - Vital Signs Vital signs: Vital Signs Temp Pulse Resp BP Pulse Ox 04/18/17 10:53 99 F 101 18 151/85 96 04/18/17 09:48 16 93 04/18/17 06:47 98.6 F 97 18 129/77 97 04/18/17 03:20 97.7 F 91 18 135/83 94 04/17/17 22:57 99.0 F 107 18 137/79 92 04/17/17 22:42 18 95 04/17/17 19:23 99.8 F H 104 18 127/83 98 04/17/17 16:33 99.4 F 98 18 95 04/17/17 16:11 16 94 Intake and Output 04/17/17 04/18/17 04/18/17 23:59 07:59 15:59 Intake Total 1190 / 1190 250 / 250 240 / 240 Output Total 1300 / 1300 400 / 400 Balance -110 / -110 -150 / -150 240 / 240 Intake: IV Fluids 100 / 100 Rocephin 1,000 MG In 100 / 100 Dextrose 5% (Minibag+) 100 ML 100 ML @ 200 mls/ hr IVPB Q24H [facility] Rx#: [id number] Oral 1090 / 1090 250 / 250 240 / 240 Output: Urine 1300 / 1300 400 / 400 Other: Meal Dinner Breakfast Percent of Meal Consumed 95% 90% Weight 68.6 kg Blood Glucose* 132 119 182 Patient Weight 04/18/17 23:59 Weight 68.6 kg - General Appearance General appearance: Present: well-developed, well-nourished EENT: Present: ATNC Neck: Present: supple Additional Comments: Respirations are unlabored. Cardiology: Present: regular rate Integumentary: Present: warm and dry Neurologic: Present: alert and oriented x3 Musculoskeletal: Present: no cyanosis - Lab 04/17/17 05:21 04/18/17 05:55 Most recent lab results Calcium 9.2 mg/dL (8.6-10.8) 04/18/17 05:55 Phosphorus 4.8 mg/dL (2.3-4.7) H 04/14/17 12:31 Magnesium 1.8 mg/dL (1.6-2.6) 04/18/17 05:55 Urine Creatinine 29 mg/dL 04/14/17 22:20 Urine Sodium 73.0 mEq/L 04/14/17 22:20 Urine Total Protein 15 mg/dL (1-14) H 04/14/17 22:20 - VTE Reasons for not Prescribing Prophylaxis: Treatment not Indicated - Low risk for VTE Documentation of Mechanical Device: Graduated compression elastic hosiery Consult Discharge Plan - Plan Referrals: Marla Miramontes DO [Primary Care Provider] -
[2017-04-18] MEDS ORDERED: 0.9 % Sodium Chloride 1,000 ML IVC SCH (13:15)
[2017-04-18] MEDS ORDERED: RISPERIDONE IM SCH (19:00)
[2017-04-19] MEDS: Ipratropium/Albuterol Neb 3 ML IH SCH ×4 (03:44→22:47)
[2017-04-19 05:02] LABS: Basophils # 0.1 K/mcL (0.0-0.2); Basophils % 0.8 %; Eosinophils # 0.3 K/mcL (0.0-0.6); Eosinophils % 3.6 %; Hemoglobin 11.2 g/dL (11.5-15.4); Immature Granulocytes % 0.4 % (0-4); Lymphocytes # 2.4 K/mcL (0.6-4.6); Mean Corpuscular Hemoglobin 29.1 pg (28.0-33.3); Mean Corpuscular Volume 90.9 fL (83.0-100.0); Mean Platelet Volume 10.5 fL (9.4-12.4); Monocytes # 0.8 K/mcL (0.0-1.3); Monocytes % 11.6 %; Neutrophils # 3.7 K/mcL (1.6-8.9); Platelet Count 255 K/mcL (140-400); Red Blood Count 3.85 M/mcL (3.82-4.97); Red Cell Distribution Width 13.3 % (11.5-14.5); Segmented Neutrophils % 50.6 %
[2017-04-19 05:12] LABS: Calcium 9.4 mg/dL (8.6-10.8); Magnesium 1.5 mg/dL (1.6-2.6); Potassium 3.9 mEq/L (3.5-4.5)
--- NOTE | 2017-04-19 08:29 | Internal Med Progress Note ---
<Kevin Colindres - Last Filed: 04/19/17 08:26> Date of Encounter: 04/19/17 Time of Encounter: 08:26 - Assessment and plan (1) Acute renal failure Current Visit: No Status: Acute Assessment and plan: Creatinine continues to improve. Down to 2.07 today. Patient continues to have excellent urine output. No indication for further dialysis. Continue to monitor renal function and urine output. Qualifiers: Qualified Code(s): N17.9 - Acute kidney failure, unspecified (2) Hypoglycemia Current Visit: No Status: Acute Assessment and plan: Resolved. Blood sugars are under good control. Continue to monitor. (3) Hyperkalemia Current Visit: Yes Status: Acute Assessment and plan: Resolved. Potassium 3.9 today. Likely related to acute renal failure which is improving as discussed above. Continue to monitor. (4) Schizophrenia Current Visit: Yes Status: Acute Assessment and plan: Stable. Continue home medications. Qualifiers: Schizophrenia type: paranoid schizophrenia Qualified Code(s): F20.0 - Paranoid schizophrenia (5) COPD (chronic obstructive pulmonary disease) Current Visit: Yes Status: Chronic Assessment and plan: No evidence of exacerbation. Continue bronchodilators as needed. Qualifiers: COPD type: emphysema Emphysema type: unspecified Qualified Code(s): J43.9 - Emphysema, unspecified (6) Pneumonia Current Visit: Yes Status: Acute Assessment and plan: Reviewed CXR showing patchy infiltrate in RLL. Likely present on admission. Continue Rocephin for 7 days. Qualifiers: Laterality: right Lung location: lower lobe of lung Qualified Code(s): J18.1 - Lobar pneumonia, unspecified organism - Subjective Interval history: Patient seen and examined at bedside. Patient states that a few she feels okay today, slightly better than yesterday. She has no specific complaints. She denies fever, chills, cough or shortness of breath, chest pain. Is eating and drinking well without difficulty. - Constitutional Vitals: Temp Pulse Resp BP Pulse Ox 98.1 F 85 17 141/83 96 04/19/17 06:38 04/19/17 06:38 04/19/17 06:38 04/19/17 06:38 04/19/17 06:38 General appearance: Present: A&O X 3, no acute distress, answers questions appropriately - Respiratory Respiratory exam: Present: CTAB. Absent: rales, rhonchi, wheezes - Cardiovascular Cardiovascular exam: Present: RRR. Absent: gallop, rubs, systolic murmur - GI/Abdominal GI/Abdominal exam: Present: normal bowel sounds, soft. Absent: distended, tenderness - Extremities Exam Extremities exam: Present: warm. Absent: pedal edema, tenderness - Neurological Exam Neurological exam: Present: alert, CN II-XII intact, oriented X3, no focal deficits - Psychiatric Psychiatric exam: Present: flat affect Internal Medicine: Result - Labs CBC & Chem 7: 04/19/17 04:12 04/19/17 04:12 Labs: Short CBC 04/19/17 Range/Units 04:12 WBC 7.3 (4.3-11.1) K/mcL Hgb 11.2 L (11.5-15.4) g/dL Hct 35.0 L (35.3-44.9) % Plt Count 255 (140-400) K/mcL Neutrophils # 3.7 (1.6-8.9) K/mcL BMP 04/19/17 04:12 Sodium 140 Potassium 3.9 Chloride 107 Carbon Dioxide 24 BUN 23 H Creatinine 2.07 H Glucose 116 H Calcium 9.4 - VTE Reasons for not Prescribing Prophylaxis: Treatment not Indicated - Low risk for VTE Documentation of Mechanical Device: Graduated compression elastic hosiery Consult Discharge Plan - Plan Referrals: Marla Miramontes DO [Primary Care Provider] - <Miguelito Conroy - Last Filed: 04/19/17 13:26> Date of Encounter: 04/19/17 - Constitutional Vitals: Temp Pulse Resp BP Pulse Ox 97.4 F L 92 16 127/73 96 04/19/17 11:06 04/19/17 11:06 04/19/17 11:06 04/19/17 11:06 04/19/17 11:06 Internal Medicine: Result - Labs CBC & Chem 7: 04/19/17 04:12 04/19/17 04:12 Labs: Short CBC 04/19/17 Range/Units 04:12 WBC 7.3 (4.3-11.1) K/mcL Hgb 11.2 L (11.5-15.4) g/dL Hct 35.0 L (35.3-44.9) % Plt Count 255 (140-400) K/mcL Neutrophils # 3.7 (1.6-8.9) K/mcL BMP 04/19/17 04:12 Sodium 140 Potassium 3.9 Chloride 107 Carbon Dioxide 24 BUN 23 H Creatinine 2.07 H Glucose 116 H Calcium 9.4 - Attending Attestation I examined this patient and my medical decision-making was reviewed with the Resident Physician. I agree with the documented findings, disposition and treatment plan as described except to the extent set forth below. Home tomorrow
[2017-04-19] MEDS: Insulin LISPRO 300 UNITS/3 ML VIAL SQ SCH ×3 (09:57→16:42)
[2017-04-19] MEDS: risperiDONE 1 MG TABLET PO SCH ×2 (09:58→21:01)
[2017-04-19] MEDS: Venlafaxine XR (24 HR) 150 MG CAP.ER.24H PO SCH (09:58)
--- NOTE | 2017-04-19 14:44 | Nephrology Progress Note ---
Date of Encounter: 04/19/17 Time of Encounter: 14:43 - Assessment and Plan (1) Acute kidney injury Current Visit: Yes Status: Acute Renal function continues to slowly improve. Continue current management. Avoid nephrotoxins. Adjust medications for renal function. (2) HTN (hypertension) Current Visit: Yes Status: Acute Blood pressure is controlled. Qualifiers: Hypertension type: essential hypertension Qualified Code(s): I10 - Essential (primary) hypertension (3) Hyperkalemia Current Visit: Yes Status: Acute Resolved. (4) Schizophrenia Current Visit: Yes Status: Acute Per primary team. Qualifiers: Schizophrenia type: paranoid schizophrenia Qualified Code(s): F20.0 - Paranoid schizophrenia Subjective Principal diagnosis: STEPHEN, Hyperkalemia Interval history: Patient was seen and evaluated. No new complaint. Review of system overall stable. Objective - Vital Signs Vital signs: Vital Signs Temp Pulse Resp BP Pulse Ox 04/19/17 11:06 97.4 F L 92 16 127/73 96 04/19/17 10:43 16 141/83 99 04/19/17 06:38 98.1 F 85 17 141/83 96 04/19/17 03:50 97.6 F 82 16 117/79 99 04/19/17 00:24 99.0 F 94 17 130/74 95 04/18/17 22:28 17 96 04/18/17 19:53 99.1 F 94 17 137/85 97 04/18/17 16:25 16 97 04/18/17 15:38 99 F 96 20 113/69 96 Intake and Output 04/18/17 04/19/17 04/19/17 23:59 07:59 15:59 Intake Total 300 / 300 240 / 240 Output Total 1200 / 1200 Balance -900 / -900 240 / 240 Intake: Oral 300 / 300 240 / 240 Output: Urine 1200 / 1200 Other: Meal Lunch Percent of Meal Consumed 80% Weight 67.7 kg Blood Glucose* 167 128 135 Patient Weight 04/19/17 23:59 Weight 67.7 kg - General Appearance General appearance: Present: well-developed, well-nourished EENT: Present: ATNC Neck: Present: supple Additional Comments: Respirations are not labored. Cardiology: Present: regular rate Psychiatric: Present: mood/affect appropriate - Lab 04/19/17 04:12 04/19/17 04:12 Most recent lab results Calcium 9.4 mg/dL (8.6-10.8) 04/19/17 04:12 Phosphorus 4.8 mg/dL (2.3-4.7) H 04/14/17 12:31 Magnesium 1.5 mg/dL (1.6-2.6) L 04/19/17 04:12 Urine Creatinine 29 mg/dL 04/14/17 22:20 Urine Sodium 73.0 mEq/L 04/14/17 22:20 Urine Total Protein 15 mg/dL (1-14) H 04/14/17 22:20 - VTE Reasons for not Prescribing Prophylaxis: Treatment not Indicated - Low risk for VTE Documentation of Mechanical Device: Graduated compression elastic hosiery Consult Discharge Plan - Plan Referrals: Marla Miramontes DO [Primary Care Provider] -
[2017-04-20] MEDS: Ipratropium/Albuterol Neb 3 ML IH SCH ×2 (03:34→10:41)
[2017-04-20 04:51] LABS: Basophils # 0.1 K/mcL (0.0-0.2); Basophils % 0.8 %; Eosinophils # 0.3 K/mcL (0.0-0.6); Eosinophils % 4.1 %; Hematocrit 35.8 % (35.3-44.9); Hemoglobin 11.8 g/dL (11.5-15.4); Immature Granulocytes % 0.4 % (0-4); Lymphocytes # 2.7 K/mcL (0.6-4.6); Lymphocytes % 33.8 %; Mean Corpuscular Hemoglobin 29.9 pg (28.0-33.3); Mean Corpuscular Volume 90.6 fL (83.0-100.0); Mean Platelet Volume 10.1 fL (9.4-12.4); Neutrophils # 3.9 K/mcL (1.6-8.9); Platelet Count 241 K/mcL (140-400); Red Blood Count 3.95 M/mcL (3.82-4.97); Red Cell Distribution Width 13.2 % (11.5-14.5); Segmented Neutrophils % 48.9 %
[2017-04-20 05:17] LABS: Calcium 9.9 mg/dL (8.6-10.8); Magnesium 1.3 mg/dL (1.6-2.6)
[2017-04-20] MEDS: Insulin LISPRO 300 UNITS/3 ML VIAL SQ SCH ×2 (08:05→11:55)
[2017-04-20] MEDS: Venlafaxine XR (24 HR) 150 MG CAP.ER.24H PO SCH (09:30)
[2017-04-20] MEDS: risperiDONE 1 MG TABLET PO SCH (09:30)
--- NOTE | 2017-04-20 11:01 | Discharge Summary ---
<CoriLorraine - Last Filed: 04/20/17 15:42> Date of Encounter: 04/20/17 Time of Encounter: 11:00 - Discharge Diagnosis (1) Acute renal failure Priority: Primary Status: Acute Qualifiers: Qualified Code(s): N17.9 - Acute kidney failure, unspecified (2) Hypoglycemia Priority: Secondary Status: Resolved (3) Hyperkalemia Priority: Primary Status: Resolved (4) Schizophrenia Priority: Secondary Status: Chronic Qualifiers: Schizophrenia type: paranoid schizophrenia Qualified Code(s): F20.0 - Paranoid schizophrenia (5) COPD (chronic obstructive pulmonary disease) Priority: Secondary Status: Chronic Qualifiers: COPD type: emphysema Emphysema type: unspecified Qualified Code(s): J43.9 - Emphysema, unspecified (6) Hyperlipidemia Priority: Secondary Status: Chronic Qualifiers: Hyperlipidemia type: pure hypercholesterolemia Qualified Code(s): E78.00 - Pure hypercholesterolemia, unspecified; E78.0 - Pure hypercholesterolemia (7) HTN (hypertension) Priority: Secondary Status: Chronic Qualifiers: Hypertension type: essential hypertension Qualified Code(s): I10 - Essential (primary) hypertension (8) Tobacco abuse Priority: Secondary Status: Chronic - Discharge Medications Home Medications: Benztropine [Cogentin] 0.5 mg PO BID 08/27/15 [History] DiphenhydraMINE [Benadryl] 50 mg PO HS 08/27/15 [History] Haloperidol [Haldol] 5 mg PO QAM 08/27/15 [History] Lisinopril [Zestril] 10 mg PO DAILY 08/27/15 [History] Metformin HCl [Fortamet] 1,000 mg PO BID 08/27/15 [History] Naproxen [Naprosyn] 500 mg PO BID 08/27/15 [History] Pravastatin Sodium [Pravachol] 20 mg PO HS 08/27/15 [History] Venlafaxine HCl [Venlafaxine HCl ER] 150 mg PO DAILY 08/27/15 [History] glipiZIDE [Glipizide] 10 mg PO BID 08/27/15 [History] risperiDONE [Risperdal] 4 mg PO BID 08/27/15 [History] Albuterol Neb [Proventil Neb] 2.5 mg IH Q4HR PRN 04/14/17 [History] RisperiDONE MICROSPHERES [Risperdal Consta] 50 mg IM Q2W 04/14/17 [History] Allergies/Adverse Reactions: 3 Allergy/AdvReac Type Severity Reaction Status Date / Time No Known Allergies Allergy Verified 08/27/15 16:11 Date of admission: 04/14/17 15:22 Primary care physician: César Miramontes MD Consults: 04/14/17 12:20 Consult to Physician [CONS] Routine Consulting Provider: oMlina Martin Reason for Consult: STEPHEN, hyperkalemia Time Notified: 12:30 Call Completed: Yes Discharging clinician: Lorraine Persaud Anticipated date of discharge: 04/20/17 - Patient Status Disposition: Home, Self-Care Condition: Fair Functional capacity at discharge: independent ambulation (fall risk) Overall status at discharge: patient is progressing back to baseline - Discharge Instructions Instructions: Acute Kidney Injury (DC), Diabetes Mellitus Type 2 in Adults (DC) , Pneumonia (DC) Follow Up With: César Miramontes MD [Primary Care Provider] - (patient is from [facility] and Dr. Miramontes see patient at home...) Molina Martin, [Partnered Physician] - 05/20/17 3:55 pm (BMP 1-2 weeks prior) Additional Instructions: Please follow up with your primary care provider as scheduled Please follow up with Dr. Martin of the [facility] as scheduled,with a BMP 1-2 weeks prior to clinic visit Please return to the emergency room in case of fever, changes in the volume of urine output, blood in urine, or new acute onset of symptoms - Diet and Activity Activity: increase activity as tolerated Diet: low salt diet Interval History: No acute events overnight. Pt states she is ready to go home. Feels she is safe at home. Denies SI. Denies HI. Had no questions for resident MD. Hospital course: Ms. Mann is a 51 year old females with a past medical history of schizophrenia living in foster care, NIDDM on oral meds, HTN, Hyperlipidemia, COPD with ongoing tobacco abuse. She presented as a direct admit from [place] for STEPHEN with a Scr of 5.8 and a K+ of 7.5. She was given kayexalate and 2 L IVF and referred here. On admission, she reported a 3-4 days hx N/V, no diarrhea and poor intake. She is on Metformin, JULIETA and also Naprosyn at home although she says she only uses NSAIDs occasionally. Review of past labs showed a GFR of 45 on 07/11/16 and 59 on 06/11/16. Labs were suggestive of acute kidney injury, and a STEPHEN and CKD workup was initiated. The patient's serum K+ responded to intravenous fluids and responded adequately to Kayexalate. Srict I/O were initiated. Nephrotoxins were avoided when possible. She had an episode of hypoglycemia that resolved with fluid management. Patient was deemed appropriate for discharge following continued improvement in renal functions. - Time Spent with Patient Total time spent providing and/or coordinating discharge services: - Constitutional Vitals: Temp Pulse Resp BP Pulse Ox 98.2 F 84 17 116/72 92 04/20/17 07:29 04/20/17 07:29 04/20/17 07:29 04/20/17 07:29 04/20/17 07:29 General appearance: Present: A&O X 3, no acute distress, answers questions appropriately - Head Head exam: Present: atraumatic, normocephalic - Respiratory Respiratory exam: Present: CTAB. Absent: accessory muscle use, rales, rhonchi, wheezes - Cardiovascular Cardiovascular exam: Present: RRR, +S1, +S2. Absent: bradycardia, tachycardia - GI/Abdominal GI/Abdominal exam: Present: normal bowel sounds, soft, no peritoneal signs. Absent: distended, tenderness - Extremities Exam Extremities exam: Present: normal inspection. Absent: tenderness - Psychiatric Psychiatric exam: Present: flat affect Additional comments: Denies SI. Denies HI. - VTE Reasons for not Prescribing Prophylaxis: Treatment not Indicated - Low risk for VTE Documentation of Mechanical Device: Graduated compression elastic hosiery <Miguelito Conroy P - Last Filed: 04/20/17 18:54> Date of Encounter: 04/20/17 Date of admission: 04/14/17 15:22 Primary care physician: César Miramontes MD Consults: 04/14/17 12:20 Consult to Physician [CONS] Routine Consulting Provider: Molina Martin Reason for Consult: STEPHEN, hyperkalemia Time Notified: 12:30 Call Completed: Yes Hospital course: Ms. Mann is a 51 year old female - Time Spent with Patient Total time spent providing and/or coordinating discharge services: - Constitutional Vitals: Temp Pulse Resp BP Pulse Ox 97.4 F L 92 18 111/77 100 04/20/17 11:15 04/20/17 11:15 04/20/17 11:15 04/20/17 11:15 04/20/17 11:15 - Attending Attestation I examined this patient and my medical decision-making was reviewed with the Resident Physician. I agree with the documented findings, disposition and treatment plan as described except to the extent set forth below.
--- NOTE | 2017-04-20 11:12 | Nephrology Progress Note ---
Date of Encounter: 04/20/17 Time of Encounter: 11:10 - Assessment and Plan (1) Acute kidney injury Current Visit: Yes Status: Acute Renal function continues to slowly improve. Continue current management. Avoid nephrotoxins. Adjust medications for renal function. Patient should follow-up with Dr. Martin 3-8 weeks after discharge with a BMP 1-2 weeks prior to clinic visit. (2) HTN (hypertension) Current Visit: Yes Status: Acute Blood pressure is controlled. Qualifiers: Hypertension type: essential hypertension Qualified Code(s): I10 - Essential (primary) hypertension (3) Hyperkalemia Current Visit: Yes Status: Acute Resolved. (4) Schizophrenia Current Visit: Yes Status: Acute Per primary team. Qualifiers: Schizophrenia type: paranoid schizophrenia Qualified Code(s): F20.0 - Paranoid schizophrenia Subjective Principal diagnosis: STEPHEN, Hyperkalemia Interval history: Patient was seen. She is asleep. Anticipate discharge today. Objective - Vital Signs Vital signs: Vital Signs Temp Pulse Resp BP Pulse Ox 04/20/17 07:29 98.2 F 84 17 116/72 92 04/20/17 04:44 98.7 F 87 14 102/70 95 04/20/17 00:22 97.6 F 86 14 124/77 94 04/19/17 22:47 16 96 04/19/17 18:57 99.2 F 86 16 131/75 94 04/19/17 15:48 97.9 F 88 18 125/81 96 04/19/17 15:24 16 96 Intake and Output 04/19/17 04/20/17 04/20/17 23:59 07:59 15:59 Intake Total 120 / 120 120 / 120 Output Total 2099 650 / 650 Balance -1979 / -1979 -650 / -650 120 / 120 Intake: Oral 120 / 120 120 / 120 Output: Urine 2099 650 / 650 Other: Meal Dinner Breakfast Percent of Meal Consumed 50% 40% Weight 66.5 kg Blood Glucose* 175 121 Patient Weight 04/20/17 23:59 Weight 66.5 kg - General Appearance General appearance: Present: well-developed, well-nourished EENT: Present: ATNC Additional Comments: respirations are unlabored. Cardiology: Present: regular rate - Lab 04/20/17 04:28 04/20/17 04:28 Most recent lab results Calcium 9.9 mg/dL (8.6-10.8) 04/20/17 04:28 Phosphorus 4.8 mg/dL (2.3-4.7) H 04/14/17 12:31 Magnesium 1.3 mg/dL (1.6-2.6) L 04/20/17 04:28 Urine Creatinine 29 mg/dL 04/14/17 22:20 Urine Sodium 73.0 mEq/L 04/14/17 22:20 Urine Total Protein 15 mg/dL (1-14) H 04/14/17 22:20 - VTE Reasons for not Prescribing Prophylaxis: Treatment not Indicated - Low risk for VTE Documentation of Mechanical Device: Graduated compression elastic hosiery Consult Discharge Plan - Plan Additional Instructions: Please follow up with your primary care provider as scheduled Referrals: César Miramontes MD [Primary Care Provider] - ([facility] and Dr. Miramontes see patient at home...)
[2017-04-20 11:18] VITALS: BP 111/77
== END 2017-04-20 13:20 | disposition home or self-care (01) | DRG 469 ==
LOC: 2ANU → SUATTDRO 15:22
PROVIDERS: ADMIT Internal Medicine; ATTEND Internal Medicine